=== PATIENT | male | born 1990 | race Caucasian/White ===

== ENCOUNTER 2018-06-16 08:11 | Emergency (ER) | payer OTHER ==
[~2018-06-16] VITALS: Ht 180.3 cm; Wt 72.0 kg
[~2018-06-16 08:11] MED LIST: CYCLOBENZAPRINE10 MG PO
[2018-06-16] MEDS ORDERED: KEFLEX500 MG PO (10:16)
[2018-06-16] MEDS ORDERED: MOTRIN800 MG PO (10:16)
[2018-06-16 10:37] VITALS: BP 162/89
== END 2018-06-16 10:37 | disposition home or self-care (01) ==
LOC: EME 08:11
PROC: 3E0234Z Introduction of Serum, Toxoid and Vaccine into Muscle, Percutaneous Approach (ICD-10-PCS; principal; 2018-06-16)
PROC: 0HQFXZZ Repair Right Hand Skin, External Approach (ICD-10-PCS; principal; 2018-06-16)
DX: S67.196A Crushing injury of right little finger, initial encounter (principal); S62.606B Fracture of unspecified phalanx of right little finger, initial encounter for open fracture; W31.89XA Contact with other specified machinery, initial encounter; Y99.0 Civilian activity done for income or pay; Z23 Encounter for immunization; F17.200 Nicotine dependence, unspecified, uncomplicated
CPT/HCPCS: 73140; 99281; 99283